=== PATIENT | female | born 1985 | race Caucasian/White ===

== ENCOUNTER 2018-08-22 09:42 | Outpatient (CLI) | payer MEDICAID ==
[~2018-08-22 09:42] MED LIST: BENZ1LOZ61 PO; ONDA8TAB6 PO; PRED20TA PO; iohexol 350MG/ML 100ml bottle IV ONE
== END 2018-08-22 23:59 | disposition home or self-care (01) ==
LOC: 64 CT 09:42
PROVIDERS: ATTEND Internal Medicine Critical Care Medicine
DX: J90 Pleural effusion, not elsewhere classified (principal); Z98.890 Other specified postprocedural states
CPT/HCPCS: 71275; Q9967